=== PATIENT | male | born 1980 | race African-American/Black ===

== ENCOUNTER 2016-11-02 23:23 | Emergency (ER) | payer MEDICAID ==
[~2016-11-02] VITALS: Ht 180.3 cm; Wt 95.3 kg
[2016-11-02 23:52] VITALS: BP_SYST 129
--- NOTE | 2016-11-03 02:43 | NUR ---
Patient to ER bed 7 to gown for evaluation. Side rails up. Report given to TYSON HARDY.
--- NOTE | 2016-11-03 02:45 | NUR ---
Patient AAO x4, states he is here for a second opinion in a medication prescription given to him for tx of STI. C/O right groin lymph node pain, denies N/V/D. No acute distress noted. Will continue to monitor.
--- NOTE | 2016-11-03 03:09 | NUR ---
MARTIN Castillo at bedside examining patient.
--- NOTE | 2016-11-03 04:00 | NUR ---
Patient resting quietly. No acute distress noted. Vital signs within normal range.
--- NOTE | 2016-11-03 05:00 | NUR ---
MARTIN Castillo at bedside re-examining patient.
[2016-11-03] MEDS ORDERED: DOXYCYCLINE HYCLATE 100 MG in D5W 100 ML IV ONE (05:15)
[2016-11-03] MEDS ORDERED: DOXYCYCLINE HYCLATE 100 MG VIAL IV ONE ×2 (05:27)
[2016-11-03] MEDS ORDERED: KETOROLAC TROMETHAMINE 60 MG/2 ML VIAL IM ONE (05:30)
[2016-11-03] MEDS ORDERED: DOXYCYCLINE HYCLATE 100 MG CAPSULE PO ONE (05:30)
--- NOTE | 2016-11-03 05:30 | NUR ---
Patient refused torodol, states "I'm not in any pain. I'll take something at home." notified.
[2016-11-03] MEDS ORDERED: DOXYCYCLINE HYCLATE 100 MG CAPSULE ONE (05:48)
[2016-11-03 05:55] VITALS: BP_SYST 130
--- NOTE | 2016-11-03 05:55 | NUR ---
Patient given written and verbal discharge instructions and verbalizes understanding. ER MD discussed with patient the results and treatment provided. Patient in stable condition. ID arm band removed. Rx of Doxycycline given. Patient educated on pain management and to follow up with PMD. Pain Scale 0/10. Opportunity for questions provided and answered.
== END 2016-11-03 05:55 | disposition home or self-care (01) ==
LOC: SED 23:23
DX: A55 Chlamydial lymphogranuloma (venereum) (principal)
CPT/HCPCS: 36415; 86592; 86780; 99283; J1885; J3490; J7060

== ENCOUNTER 2017-08-25 01:37 | Emergency (ER) | payer MEDICAID ==
[~2017-08-25] VITALS: Ht 180.3 cm; Wt 104.3 kg
[2017-08-25 01:47] VITALS: BP_SYST 144
[2017-08-25 02:18] VITALS: BP_SYST 144
== END 2017-08-25 02:18 | disposition home or self-care (01) ==
LOC: SED 01:37
DX: J32.9 Chronic sinusitis, unspecified (principal); K21.9 Gastro-esophageal reflux disease without esophagitis; H10.9 Unspecified conjunctivitis; F17.210 Nicotine dependence, cigarettes, uncomplicated; I10 Essential (primary) hypertension
CPT/HCPCS: 99283